=== PATIENT | female | born 1970 | race Hispanic/Latino ===

== ENCOUNTER 2018-06-15 03:31 | Emergency (ER) | payer SELFPAY ==
[2018-06-15 03:56] LABS: APPEARANCE,URINE Cloudy (CLEAR); BILIRUBIN,URINE Negative (NEGATIVE); COLOR,URINE Yellow (YELLOW); GLUCOSE, URINE (UA) Negative (NEGATIVE); KETONES,URINE Trace mg/dL (NEGATIVE); LEUKOCYTE ESTERASE ,URINE Large (NEGATIVE); NITRATE,URINE Positive (NEGATIVE); OCCULT BLOOD,URINE Moderate (NEGATIVE); PH,URINE 6.5 (5.0-8.0); PROTEIN,URINE POS 1+ (NEGATIVE)
[2018-06-15 04:00] LABS: HCG,QUAL RESULT NEGATIVE (NEGATIVE)
[2018-06-15 04:03] LABS: BACTERIA,URINE Moderate /HPF (None Seen); MUCUS,URINE Moderate LPF (None Seen); RBC,URINE 0-1 /HPF (0-1)
[2018-06-15 04:23] LABS: CREATININE 0.6 mg/dL (0.5-1.5); POTASSIUM 4.3 mmol/L (3.5-5.1)
[2018-06-15 04:27] LABS: ALBUMIN 3.4 g/dL (3.5-5.0); BILIRUBIN,TOTAL 0.2 mg/dL (0.2-1.0); TOTAL PROTEIN, SERUM 7.8 g/dL (6.0-8.3)
[2018-06-15 04:29] LABS: BASOPHILS % (AUTO) 2.1 % (0.0-5.0); EOSINOPHILS % (AUTO) 5.3 % (0.0-8.0); HEMATOCRIT 31.1 % (36-48); LYMPHOCYTES % (AUTO) 19.3 % (21.0-51.0); MEAN CORPUSCULAR HEMOGLOBIN 19.9 pg (27.0-33.0); MEAN CORPUSCULAR HGB CONC 31.1 g/dL (32.0-36.0); MEAN CORPUSCULAR VOLUME 63.9 fL (79-99); MONOCYTES % (AUTO) 5.8 % (3.0-13.0); NEUTROPHILS % (AUTO) 67.5 % (40.0-77.0); PLATELET COUNT (AUTO) 449 K/uL (130-400); RED BLOOD CELL COUNT(AUTO) 4.87 MIL/uL (4.00-5.50); RED CELL DISTRIBUTION WIDTH 20.4 % (11.0-15.5); WHITE BLOOD COUNT (AUTO) 7.7 K/uL (4.8-10.8)
[2018-06-15] MEDS ORDERED: LOPERAMIDE HCL 2 MG CAP PO ONE (04:29)
== END 2018-06-15 07:38 | disposition home or self-care (01) ==
LOC: EDH 03:31
DX: A09 Infectious gastroenteritis and colitis, unspecified (principal); N30.00 Acute cystitis without hematuria; R05 Cough; Z90.49 Acquired absence of other specified parts of digestive tract; Z88.6 Allergy status to analgesic agent
CPT/HCPCS: 36415; 71046; 80053; 81001; 81025; 83630; 83690; 85025

== ENCOUNTER 2018-08-03 15:04 | Emergency (ER) | payer OTHER ==
[2018-08-03 15:18] LABS: APPEARANCE,URINE CLOUDY (CLEAR); BILIRUBIN,URINE NEGATIVE (NEGATIVE); COLOR,URINE YELLOW (YELLOW); GLUCOSE, URINE (UA) NEGATIVE (NEGATIVE); KETONES,URINE NEGATIVE (NEGATIVE); LEUKOCYTE ESTERASE ,URINE TRACE (NEGATIVE); NITRATE,URINE NEGATIVE (NEGATIVE); OCCULT BLOOD,URINE LARGE (NEGATIVE); PH,URINE 5.5 (5.0-8.0); PROTEIN,URINE 30 (NEGATIVE); UROBILINOGEN,URINE 0.2 mg/dL (0.2-1.0)
[2018-08-03 15:29] LABS: HCG,QUAL RESULT NEGATIVE (NEGATIVE)
[2018-08-03 15:42] LABS: BASOPHILS % (AUTO) 0.7 % (0.0-5.0); EOSINOPHILS % (AUTO) 0.3 % (0.0-8.0); HEMATOCRIT 29.5 % (36-48); LYMPHOCYTES % (AUTO) 11.3 % (21.0-51.0); MEAN CORPUSCULAR HGB CONC 30.7 g/dL (32.0-36.0); MONOCYTES % (AUTO) 3.9 % (3.0-13.0); NEUTROPHILS % (AUTO) 83.8 % (40.0-77.0); PLATELET COUNT (AUTO) 476 K/uL (130-400); RED BLOOD CELL COUNT(AUTO) 4.53 MIL/uL (4.00-5.50); RED CELL DISTRIBUTION WIDTH 20.2 % (11.0-15.5); WHITE BLOOD COUNT (AUTO) 10.3 K/uL (4.8-10.8)
[2018-08-03 15:54] LABS: BACTERIA,URINE Few /HPF (None Seen); RBC,URINE 26-50 /HPF (0-1)
[2018-08-03 15:55] LABS: MUCUS,URINE Few LPF (None Seen); SQUAMOUS EPITHELIAL CELL,UR Few /HPF (0-2); YEAST,URINE BUDDING Few /HPF (None Seen)
[2018-08-03 15:58] LABS: CREATININE 0.7 mg/dL (0.5-1.5); POTASSIUM 3.9 mmol/L (3.5-5.1)
[2018-08-03 15:59] LABS: ALBUMIN 3.4 g/dL (3.5-5.0); BILIRUBIN,TOTAL 0.2 mg/dL (0.2-1.0); TOTAL PROTEIN, SERUM 7.9 g/dL (6.0-8.3)
== END 2018-08-03 16:05 | disposition home or self-care (01) ==
LOC: EDH 15:04
DX: N30.00 Acute cystitis without hematuria (principal); N92.0 Excessive and frequent menstruation with regular cycle; Z90.49 Acquired absence of other specified parts of digestive tract; Z88.5 Allergy status to narcotic agent
CPT/HCPCS: 36415; 80053; 81001; 81025; 85025; 87088

== ENCOUNTER 2018-10-30 23:07 | Emergency (ER) | payer OTHER | END 2018-10-31 01:08 | disposition home or self-care (01) | LOC: EDH 23:07 | DX: N89.8 Other specified noninflammatory disorders of vagina (principal); Z88.6 Allergy status to analgesic agent; Z90.49 Acquired absence of other specified parts of digestive tract ==

== ENCOUNTER 2021-02-22 01:32 | Emergency (ER) | payer OTHER ==
[~2021-02-22] VITALS: Ht 157.5 cm; Wt 110.2 kg
[2021-02-22 01:49] VITALS: BP 137/91
[2021-02-22 02:54] VITALS: BP_SYST 131; BP_SYST 171; BP_DIAS 88
[2021-02-22] MEDS ORDERED: ONDANSETRON 4MG INJ ONE (02:58)
[2021-02-22] MEDS ORDERED: LACTATED RINGERS 1000ML 1,000 ML IV ONE (02:58)
[2021-02-22] MEDS ORDERED: FENTANYL CITRATE PF 50 MCG/1 ML 2ML VIAL IVP ONE (03:00)
[2021-02-22] MEDS ORDERED: ONDANSETRON 4MG INJ IVP ONE (03:00)
[2021-02-22] MEDS: LACTATED RINGERS 1000ML 1,000 ML IV ONE ×2 (03:00→03:35)
[2021-02-22 03:11] LABS: APPEARANCE,URINE Clear (CLEAR); BILIRUBIN,URINE Negative (NEGATIVE); COLOR,URINE Yellow (YELLOW); GLUCOSE, URINE (UA) Negative (NEGATIVE); KETONES,URINE Negative (NEGATIVE); LEUKOCYTE ESTERASE ,URINE Trace (NEGATIVE); NITRATE,URINE Negative (NEGATIVE); OCCULT BLOOD,URINE Negative (NEGATIVE); PH,URINE 5.5 (5.0-8.0); PROTEIN,URINE Negative (NEGATIVE)
[2021-02-22 03:16] VITALS: BP 162/76
[2021-02-22 03:25] LABS: BACTERIA,URINE Few /HPF (None Seen); RBC,URINE 0-1 /HPF (0-1)
[2021-02-22 05:29] LABS: BASOPHILS % (AUTO) 0.2 % (0.0-5.0); EOSINOPHILS % (AUTO) 1.7 % (0.0-8.0); HEMATOCRIT 35.2 % (36-48); LYMPHOCYTES % (AUTO) 19.8 % (21.0-51.0); MEAN CORPUSCULAR HEMOGLOBIN 19.3 pg (27.0-33.0); MEAN CORPUSCULAR HGB CONC 27.6 g/dL (32.0-36.0); MEAN CORPUSCULAR VOLUME 70.1 fL (79-99); MONOCYTES % (AUTO) 6.8 % (3.0-13.0); PLATELET COUNT (AUTO) 433 K/uL (130-400); RED BLOOD CELL COUNT(AUTO) 5.02 MIL/uL (4.00-5.50); RED CELL DISTRIBUTION WIDTH 20.7 % (11.0-15.5); WHITE BLOOD COUNT (AUTO) 6.5 K/uL (4.8-10.8)
[2021-02-22 05:34] LABS: CREATININE 0.6 mg/dL (0.5-1.5); POTASSIUM 3.8 mmol/L (3.5-5.1)
[2021-02-22 05:39] LABS: ALBUMIN 3.3 g/dL (3.5-5.0); BILIRUBIN,TOTAL 0.3 mg/dL (0.2-1.0); TOTAL PROTEIN, SERUM 8.2 g/dL (6.0-8.3)
[2021-02-22] MEDS ORDERED: ONDA4TAB10 PO (05:48)
[2021-02-22 05:52] VITALS: BP 134/72
== END 2021-02-22 06:01 | disposition home or self-care (01) ==
LOC: EDH 01:32
DX: K52.9 Noninfective gastroenteritis and colitis, unspecified (principal); E86.0 Dehydration; R10.84 Generalized abdominal pain; Z88.5 Allergy status to narcotic agent; Z88.6 Allergy status to analgesic agent
CPT/HCPCS: 36415; 74176; 80053; 81001; 81025; 83690; 85025; 96361 ×2; 96374; 96375; 99284; J2405; J3010; J7120

== ENCOUNTER 2022-11-23 07:15 | Emergency (ER) | payer BC, OTHER ==
[~2022-11-23] VITALS: Ht 160 cm; Wt 112.5 kg
[~2022-11-23 07:15] MED LIST: BENZ-39 PO; ONDA4TAB10 PO
[2022-11-23 07:43] LABS: BASOPHILS % (AUTO) 0.7 % (0.0-5.0); EOSINOPHILS % (AUTO) 2.1 % (0.0-8.0); HEMATOCRIT 44.6 % (36-48); LYMPHOCYTES % (AUTO) 28.9 % (21.0-51.0); MEAN CORPUSCULAR HEMOGLOBIN 27.7 pg (27.0-33.0); MEAN CORPUSCULAR HGB CONC 31.8 g/dL (32.0-36.0); MEAN CORPUSCULAR VOLUME 86.9 fL (79-99); MONOCYTES % (AUTO) 6.2 % (3.0-13.0); NEUTROPHILS % (AUTO) 61.9 % (40.0-77.0); PLATELET COUNT (AUTO) 304 K/uL (130-400); RED BLOOD CELL COUNT(AUTO) 5.13 MIL/uL (4.00-5.50); RED CELL DISTRIBUTION WIDTH 13.2 % (11.0-15.5); WHITE BLOOD COUNT (AUTO) 5.8 K/uL (4.8-10.8)
[2022-11-23] MEDS ORDERED: KETOROLAC 30MG VIAL (30MG/ML) IVP ONE (08:00)
[2022-11-23] MEDS ORDERED: ONDANSETRON 4MG INJ IVP ONE (08:00)
[2022-11-23] MEDS ORDERED: 0.9%NACL 1000ML 1,000 ML IV ONE (08:00)
[2022-11-23 08:17] LABS: ALBUMIN 3.7 g/dL (3.5-5.0); CREATININE 0.8 mg/dL (0.5-1.5); POTASSIUM 3.9 mmol/L (3.5-5.1); TOTAL PROTEIN, SERUM 8.4 g/dL (6.0-8.3)
[2022-11-23 08:18] LABS: APPEARANCE,URINE CLEAR (CLEAR); BILIRUBIN,URINE NEGATIVE (NEGATIVE); COLOR,URINE LIGHT-YELLOW (YELLOW); GLUCOSE, URINE (UA) NEGATIVE (NEGATIVE); KETONES,URINE NEGATIVE (NEGATIVE); LEUKOCYTE ESTERASE ,URINE 75 Leu/uL (NEGATIVE); NITRATE,URINE NEGATIVE (NEGATIVE); OCCULT BLOOD,URINE NEGATIVE (NEGATIVE); PH,URINE 5.5 (5.0-8.0); PROTEIN,URINE NEGATIVE (NEGATIVE); UROBILINOGEN,URINE 0.2 mg/dL (0.2-1.0)
[2022-11-23 08:29] LABS: BACTERIA,URINE RARE /HPF (None Seen); MUCUS,URINE RARE LPF (None Seen); RBC,URINE 0-1 /HPF (0-1); SQUAMOUS EPITHELIAL CELL,UR FEW /HPF (0-2)
[2022-11-23] MEDS ORDERED: AMOX1TAB16 PO (08:45)
[2022-11-23] MEDS ORDERED: HYOS0.124 SL (08:45)
[2022-11-23 09:00] VITALS: BP 112/51
[2022-11-23] MEDS ORDERED: AMOX/CLAV 875/125MG TAB PO ONE (09:00)
== END 2022-11-23 09:37 | disposition home or self-care (01) ==
LOC: EDH 07:15 → MERGE 07:15 → EDH 09:37
DX: K57.32 Diverticulitis of large intestine without perforation or abscess without bleeding (principal); Z79.1 Long term (current) use of non-steroidal anti-inflammatories (NSAID)
CPT/HCPCS: 99284; 74176; 96374; 96361; 96375; 80053; 83690; 85025; 87077; 87088; 87186; 81001; 81025; 36415; J7030; J2405; J1885

== ENCOUNTER 2022-12-12 11:33 | Emergency (ER) | payer BC, OTHER ==
[~2022-12-12] VITALS: Ht 157.5 cm; Wt 112.9 kg
[~2022-12-12 11:33] MED LIST changes: +AMOX1TAB16 PO; +HYOS0.124 SL
[2022-12-12 11:39] VITALS: BP 137/89
[2022-12-12] MEDS ORDERED: KETOROLAC 15MG/ML VIAL (15MG/ML) IM ONE (12:00)
== END 2022-12-12 15:04 | disposition home or self-care (01) ==
LOC: EDH 11:33
DX: M77.31 Calcaneal spur, right foot (principal); Z90.710 Acquired absence of both cervix and uterus
CPT/HCPCS: 99284; 73610; 73630; 96372; J1885

== ENCOUNTER 2023-01-18 10:34 | Emergency (ER) | payer BC ==
[~2023-01-18] VITALS: Ht 160 cm; Wt 113.4 kg
[2023-01-18] MEDS ORDERED: BENZ200C53 PO (12:55)
[2023-01-18 15:52] VITALS: BP 138/86
== END 2023-01-18 15:58 | disposition home or self-care (01) ==
LOC: EDH 10:34
DX: B34.9 Viral infection, unspecified (principal); Z87.442 Personal history of urinary calculi; Z90.89 Acquired absence of other organs; Z90.49 Acquired absence of other specified parts of digestive tract; Z90.710 Acquired absence of both cervix and uterus; Z20.822 Contact with and (suspected) exposure to COVID-19
CPT/HCPCS: 99283; 71045; 87635; 87804 ×2; C9803

== ENCOUNTER 2024-06-18 16:40 | Emergency (ER) | payer SELFPAY ==
[~2024-06-18] VITALS: Ht 160 cm; Wt 118.4 kg
[~2024-06-18 16:40] MED LIST changes: +BENZ200C53 PO; +ONDA-243 PO; -ONDA4TAB10 PO
[2024-06-18 17:24] LABS: HEMATOCRIT 42.9 % (36-48); MEAN CORPUSCULAR HEMOGLOBIN 28.3 pg (27.0-33.0); MEAN CORPUSCULAR HGB CONC 31.5 g/dL (32.0-36.0); MEAN CORPUSCULAR VOLUME 89.9 fL (79-99); RED BLOOD CELL COUNT(AUTO) 4.77 MIL/uL (4.00-5.50); RED CELL DISTRIBUTION WIDTH 13.3 % (11.0-15.5); WHITE BLOOD COUNT (AUTO) 6.3 K/uL (4.8-10.8)
[2024-06-18 17:36] LABS: CREATININE 0.8 mg/dL (0.5-1.0); POTASSIUM 3.6 mmol/L (3.5-5.1)
--- NOTE | 2024-06-18 17:39 | EKG ---
[facility] Test Date: 2024-06-18 Test Time: 17:34:05 Pat Name: YUDI HAYWOOD Department: [facility] Room: Gender: F Cleaner And Preparer: [id number] : 1970 Requested By: LUCY KELLER Order Number: [id number] Reading MD: Marc Segura Measurements Intervals [place] Rate: 64 P: 40 HI: 170 QRS: -3 QRSD: 95 T: 35 QT: 431 QTc: 444 Interpretive Statements Sinus rhythm Low voltage, precordial leads Compared to ECG 02/22/2021 20:41:43 Low QRS voltage now present Electronically Signed On 06-21-2024 13:07:42 CYLINDER LOADER by Marc Segura Please click the below link to view image of tracing.
[2024-06-18] MEDS: ondanSETRON 4MG INJ IVP ONE (17:43)
[2024-06-18] MEDS: 0.9%NACL 1000ML 1,000 ML IV ONE (17:44)
--- NOTE | 2024-06-18 18:12 | HMCIMG ---
CT HEAD WITHOUT CONTRAST INDICATION: Syncope TECHNIQUE: Noncontrast axial helical CT images from the vertex through the skull base using 5 mm slice thickness without contrast material. CT was performed with one or more of the following dose reduction techniques: Automated exposure control, adjustment of the mA and/or kV according to patient size, or use of iterative reconstruction technique. COMPARISON: None FINDINGS: The cerebral and cerebellar hemispheres are age-appropriate in appearance. No evidence for abnormal extra-axial fluid collections or masses. The ventricles and sulci are normal in size and configuration. No evidence for intracranial parenchymal, epidural, or subdural hemorrhage, mass effect or midline shift. The cruz-white matter differentiation is well preserved. No secondary evidence to suggest acute ischemia. The brainstem and cerebellum appear normal. The visualized orbits appear unremarkable. The visible paranasal sinuses and mastoid air cells are clear. The calvarium appears normal. IMPRESSION: No acute intracranial process identified.
[2024-06-18 19:00] LABS: APPEARANCE,URINE CLEAR (CLEAR); BILIRUBIN,URINE NEGATIVE (NEGATIVE); COLOR,URINE LIGHT-YELLOW (YELLOW); GLUCOSE, URINE (UA) NEGATIVE (NEGATIVE); KETONES,URINE NEGATIVE (NEGATIVE); LEUKOCYTE ESTERASE ,URINE 25 Leu/uL (NEGATIVE); NITRATE,URINE 2+ (NEGATIVE); OCCULT BLOOD,URINE NEGATIVE (NEGATIVE); PH,URINE 5.5 (5.0-8.0); PROTEIN,URINE NEGATIVE (NEGATIVE); UROBILINOGEN,URINE 0.2 mg/dL (0.2-1.0)
[2024-06-18 19:06] LABS: ADD UA MICROSCOPIC YES
[2024-06-18 19:13] LABS: BACTERIA,URINE RARE /HPF (None Seen); MUCUS,URINE RARE LPF (None Seen); OTHER CASTS, URINE 1 /LPF (None Seen); SQUAMOUS EPITHELIAL CELL,UR RARE /HPF (0-2)
[2024-06-18 19:17] VITALS: BP 138/56; PULSE 78; RESP 18; TEMP 98.8; O2SAT 98
--- NOTE | 2024-06-18 19:43 | ERN ---
General Chief Complaint: Syncope Stated Complaint: FALL Time Seen by MD: 16:47 Time Seen by Midlevel: 16:47 Source: patient History of Present Illness Initial Comments Patient is a 53-year-old female with a past medical history of type 2 diabetes and hypertension presenting to the ER for a possible syncopal episode. The patient states she has been having diarrhea for the last couple of days and has been feeling progressively weaker. Today she reports going to the restroom and the next thing he remembers she was on the floor. It is unknown if she hit her head. On arrival she has no complaints and feels significantly improved. Allergies: Coded Allergies: morphine (Unverified Allergy, Mild, 02/22/21) SHORT OF BREATH PER PT No Allergy Information Available (Verified Allergy, Unknown, 02/22/21) acetaminophen (Unverified Allergy, Unknown, 02/22/21) codeine (Unverified Allergy, Unknown, 02/22/21) Home Meds Active Scripts Nitrofurantoin/Nitrofuran Mac (Macrobid) 100 Mg Cap, 1 CAP PO BID for 7 Days, #14 CAP 0 Refills Prov:LUCY KELLER 06/18/24 Benzonatate (Benzonatate) 200 Mg Capsule, 200 MG PO Q6H for cough for 7 Days, #28 CAP Prov:KONRAD RODRIGUEZ NP 01/18/23 Hyoscyamine Sulfate (Levsin-Sl) 0.125 Mg Tab.subl, 0.125 MG SL QIDP PRN for ABDOMINAL PAIN, #20 TAB.SL 0 Refills Prov:MAKEDA CYR MD 11/23/22 Amoxicillin/Potassium Clav (Amox Tr-K Clv 875-125 mg Tab) 1 Each Tablet, 1 EACH PO BID for 7 Days, #14 TAB 0 Refills Prov:MAKEDA CYR MD 11/23/22 Benzonatate (Tessalon Perles) 100 Mg Cap, 100 MG PO TID for 10 Days, #30 CAP 2 Refills Prov:SATINDER LAW MD 09/07/21 Ondansetron (Ondansetron Odt) 4 Mg Tab.rapdis, 4 MG PO TID PRN for NAUSEA for 3 Days, #10 TAB Prov:MEGAN BLANK MD 02/22/21 Past Medical History Past Medical History: No Pertinent History Past Surgical History: Hysterectomy, Cholecystectomy Family History Family History: Negative Social History Social History: Negative ROS Dictation CONSTITUTIONAL: Negative except for HPI HEAD/FACE: Negative except for HPI EENT: Negative except for HPI RESPIRATORY: Negative except for HPI GASTROINTESTINAL/ABDOMINAL: Negative except for HPI GENITOURINARY: Negative except for HPI MUSCULOSKELETAL: Negative except for HPI INTEGUMENTARY: Negative except for HPI NEUROLOGICAL/PSYCH: Negative except for HPI HEMATOLOGIC/LYMPHATIC: Negative except for HPI All Systems Negative, Except as noted above. 13 point review of systems assessed and all negative except for above. Physical Exam Physical Exam Dictation Vital Signs reviewed General Appearance: Alert, oriented x 3, no acute distress, well developed, nourished. Head and Face: non-traumatic. Eyes: PERRL, pink conjunctivas, eyelid no trauma, anterior chamber with arcus senilis. Ears: Pinnas intact and no signs of trauma or erythema ear canals clear and no discharge TM no erythema Nose: No discharge, no bleeding. Oropharynx: Mouth normal, tongue pink, pharynx clear,no erythema, tonsils no exudates, no abscesses noted, mucous membrane moist Neck: Supple, non-tender, no thyromegaly, no masses, no JVD, no bruits Breast:Deferred Chest:No tenderness, no crepitus, no paradoxical movement, no retractions Lungs:Clear, well-ventilated, symmetric, no rales, no wheezing, no rhonchi, no stridor, good breath sounds bilaterally Heart: Regular rate, regular rhythm, no murmur, no gallops Vascular: no peripheral edema, Abdomen: Soft, positive bowel sounds, nondistended, no guarding, nontender, no rebound, no masses no hepatomegaly, no splenomegaly, no Hunt's sign, no hernias. Rectal: Deferred Genital: Deferred Neurological: Normal speech, motor function intact, sensory function intact Musculoskeletal: Neck nontender, full range of motion, back nontender, full range of motion, Extremities: nontender, full range of motion Skin: Color pink, dry, no turgor, no rash, no lacerations, no abrasions, no contusions. Lymphatic: Deferred Results Laboratory and Microbiology Lab and Micro Result Laboratory Tests Test 06/18/24 17:14 White Blood Count 6.3 K/uL (4.8-10.8) Red Blood Count 4.77 MIL/uL (4.00-5.50) Hemoglobin 13.5 g/dL (12.0-16.0) Hematocrit 42.9 % (36-48) Mean Corpuscular Volume 89.9 fL (79-99) Mean Corpuscular Hemoglobin 28.3 pg (27.0-33.0) Mean Corpuscular Hemoglobin Concent 31.5 g/dL (32.0-36.0) L Red Cell Distribution Width 13.3 % (11.0-15.5) Platelet Count 280 K/uL (130-400) Mean Platelet Volume 11.5 fL (7.5-10.5) H Nucleated Red Blood Cells 0.0 % (0.0-0.19) Urine Color LIGHT-YELLOW (YELLOW) Urine Appearance CLEAR (CLEAR) Urine pH 5.5 (5.0-8.0) Urine Specific [place] 1.027 (1.001-1.031) Urine Protein NEGATIVE mg/dL (NEGATIVE) Urine Glucose (UA) NEGATIVE mg/dL (NEGATIVE) Urine Ketones NEGATIVE mg/dL (NEGATIVE) Urine Occult Blood NEGATIVE (NEGATIVE) Urine Nitrate 2+ (NEGATIVE) H Urine Bilirubin NEGATIVE mg/dL (NEGATIVE) Urine Urobilinogen 0.2 mg/dL (0.2-1.0) Urine Leukocyte Esterase 25 Gwendolyn/uL (NEGATIVE) H Urine RBC 2-5 /HPF (0-1) H Urine WBC 2-5 /HPF (0-1) H Urine Squamous Epithelial Cells RARE /HPF (0-2) Urine Bacteria RARE /HPF (None Seen) Urine Other Casts 1 /LPF (None Seen) Sodium Level 141 mmol/L (136-145) Potassium Level 3.6 mmol/L (3.5-5.1) Chloride Level 104 mmol/L (101-111) Carbon Dioxide Level 31 mmol/L (21-32) Blood Urea Nitrogen 15 mg/dL (7-18) Creatinine 0.8 mg/dL (0.5-1.0) Glomerular Filtration Rate Calc 89 mL/min (>90) Random Glucose 89 mg/dL (70-105) Total Calcium 9.1 mg/dL (8.5-10.1) Total Creatine Kinase 56 U/L (21-232) # Troponin I High Sensitivity 6 ng/L (4-50) B-Type Natriuretic Peptide 49 pg/mL (0-100) Lipase 41 U/L (16-77) Labs Reviewed?: Yes MDM MDM: Patient is a 53-year-old female with a past medical history of type 2 diabetes and hypertension presenting to the ER for a possible syncopal episode. The patient states she has been having diarrhea for the last couple of days and has been feeling progressively weaker. Today she reports going to the restroom and the next thing he remembers she was on the floor. It is unknown if she hit her head. On arrival she has no complaints and feels significantly improved. On physical examination patient is in no acute distress. Her GCS of 15. Her vital signs are stable. Patient is afebrile. The initial concern was a syncope versus dehydration versus head injury. A CT scan of the head was ordered to rule out any intracranial process however CT scan of the head is negative for any acute injury. She was started on 1 L of IV fluids given her recent episodes of diarrhea. Her CBC shows no leukocytosis. Her hemoglobin is stable. She is not anemic. Her chemistries are unremarkable. Her cardiac enzymes are negative. Her EKG does not show any ST elevations or bundle branch blocks. Her urine is consistent with a infection with positive nitrates. Patient was given 1 g of Rocephin IV and will be discharged home with supportive management. On repeat evaluation she does report feeling significantly improved. She has no complaints. Given that her blood work is unremarkable she has an upcoming appointment with her primary care doctor patient will be discharged home. Differential diagnosis: Dehydration, anemia, syncope, intracranial bleed There are no social concerns with this patient. Prescription drug management Prescriptions will include: Macrobid Medical management and examination interpretation discussions were had by me with other qualified healthcare professionals as indicated for the patient's care. ED Course Orders Procedure Category Date Status Time Cbc Without LAB 06/18/24 Complete Differential 17:04 Basic Metabolic Panel LAB 06/18/24 Complete 17:04 Lipase LAB 06/18/24 Complete 17:04 Urinalysis Profile LAB 06/18/24 Complete 17:04 12 Lead Ekg Tracing- EKG 06/18/24 Complete Technical 17:14 Troponin I High LAB 06/18/24 Complete Sensitivity 17:14 B-Type Natriuretic LAB 06/18/24 Complete Peptide 17:14 Creatine Kinase, Total LAB 06/18/24 Complete 17:14 Ct Head/Brain W/O CT 06/18/24 Resulted Contrast 17:41 0.9%Nacl 1000ml (Ns PHA 06/18/24 Complete 1000ml) 18:00 Ondansetron 4mg Inj PHA 06/18/24 Complete (Zofran 4mg Inj) 18:00 Culture Urine ALBARO 06/18/24 In Process 19:06 Ceftriaxone 1g Vial PHA 06/18/24 Complete (Rocephine 1g Inj) 19:30 Current Medications Medications (Trade) Dose Ordered Sig/Tone Route PRN Reason Start Time Stop Time Status Last Admin Dose Admin Ceftriaxone Sodium (ROCEphine 1G INJ) 1 gm ONCE IVPB 06/18/24 19:30 06/18/24 20:03 DC 06/18/24 19:54 Ondansetron HCl (zoFRAN 4MG INJ) 4 mg ONCE ONCE IVP 06/18/24 18:00 06/18/24 18:01 DC 06/18/24 17:43 Sodium Chloride 1,000 ml @ 0 mls/hr ONCE ONCE IV 06/18/24 18:00 06/18/24 18:01 DC 06/18/24 17:44 Vital Signs Date Time Temp Pulse Resp B/P (MAP) Pulse Ox O2 Delivery O2 Flow Rate FiO2 06/18/24 19:17 98.8 78 18 138/56 98 Room Air* 0 06/18/24 18:46 98.6 76 20 138/68 99 Room Air* 0 06/18/24 17:30 98.6 76 20 129/90 95 Room Air* 0 21 06/18/24 16:44 98.1 78 18 120/80 99 Room Air 0 DX & DISP Disposition: Discharge Departure Impression: Primary Impression: Urinary tract infection Additional Impression: Syncope Condition: Stable Scripts Nitrofurantoin/Nitrofuran Mac (Macrobid) 100 Mg Cap 1 CAP PO BID for 7 Days, #14 CAP 0 Refills Prov: LUCY KELLER 06/18/24 Additional Instructions: New or worsening symptoms. Your cardiac enzymes are negative. Your CT scan of the head is negative for any acute injury. Your urine is consistent with infection. You were given 1 g of ceftriaxone in the emergency department and will be discharged home with a prescription for Macrobid. Please follow up with your primary care provider as scheduled. Return to the ER for any new or worsening symptoms. Referrals: DENIS,MAHSA AIR TRAFFIC CONTROL OPERATOR (PCP) Time of Disposition: 19:54 I have reviewed the case, and I agree with, Diagnosis and Plan I performed the substantive portion of the visit. I have reviewed and personally made and approve the management plan that is documented in the note by myself or the PRADIP. I acknowledge for responsibility for the patient's management plan. LUCY KELLER Jun 18, 2024 19:43 ROOSEVELT SUN DO Jun 18, 2024 22:36
[2024-06-18] MEDS ORDERED: MACR100 PO (19:54)
[2024-06-18] MEDS: cefTRIAXone 1G VIAL IVPB SCH (19:54)
== END 2024-06-18 20:03 | disposition home or self-care (01) ==
LOC: EDH 16:40
DX: R55 Syncope and collapse (principal); N39.0 Urinary tract infection, site not specified; E11.9 Type 2 diabetes mellitus without complications; I10 Essential (primary) hypertension; Z79.899 Other long term (current) drug therapy; Z88.5 Allergy status to narcotic agent; Z90.49 Acquired absence of other specified parts of digestive tract; Z90.710 Acquired absence of both cervix and uterus
CPT/HCPCS: 99285; 96374; 70450; 96361; 96375; 82550; 84484; 80048; 83880; 83690; 85027; 87086 ×2; 87186; 81001; 36415; 93005; J0696; J2405

== ENCOUNTER 2025-04-19 11:15 | Emergency (ER) | payer BC ==
[~2025-04-19] VITALS: Ht 160 cm; Wt 128.8 kg
[~2025-04-19 11:15] MED LIST changes: +MACR100 PO
--- NOTE | 2025-04-19 14:02 | HMCIMG ---
EXAM: CR right Knee, 3 View. CLINICAL HISTORY: r/o fx COMPARISON: None provided. FINDINGS: There is medial compartment predominant moderate to severe tricompartmental right knee joint osteoarthritis. There is a small to moderate suprapatellar knee joint effusion that may reflect internal derangement. There is mild prepatellar/infrapatellar bursitis. IMPRESSION: 1. Moderate to severe tricompartmental right knee osteoarthritis, predominantly in the medial compartment. 2. Small to moderate suprapatellar knee joint effusion, possibly reflecting internal derangement. /[place]
--- NOTE | 2025-04-19 14:03 | HMCIMG ---
EXAM: US for Deep Venous Thrombosis, right Lower Extremity. CLINICAL HISTORY: Leg Pain and Swelling TECHNIQUE: Real-time ultrasound scan of the veins of the right lower extremity with color Doppler flow, spectral waveform analysis, and compression. COMPARISON: None provided. FINDINGS: DEEP VEINS: The common femoral, superficial femoral, and popliteal veins are echolucent and compressible. There is normal color Doppler flow throughout. The visualized calf veins appear patent. SOFT TISSUES: No popliteal fossa cyst or other abnormalities. IMPRESSION: 1. No evidence of deep venous thrombosis in the right lower extremity. /[place]
[2025-04-19] MEDS ORDERED: KETO10TA2 PO (14:11)
--- NOTE | 2025-04-19 14:12 | ERN ---
General Chief Complaint: Lower Extremity Pain/Injury Stated Complaint: LOWER EXTREMITY PAIN Time Seen by MD: 11:25 Time Seen by Midlevel: 11:25 Source: patient History of Present Illness Initial Comments Patient is a morbidly obese 54-year-old female presenting to the emergency department for evaluation of worsening right knee pain and ankle swelling that has been ongoing for the past six months. Denies any direct injury or trauma to the area Allergies: Coded Allergies: morphine (Unverified Allergy, Mild, 02/22/21) SHORT OF BREATH PER PT No Allergy Information Available (Verified Allergy, Unknown, 02/22/21) acetaminophen (Unverified Allergy, Unknown, 02/22/21) codeine (Unverified Allergy, Unknown, 02/22/21) Home Meds Active Scripts Nitrofurantoin/Nitrofuran Mac (Macrobid) 100 Mg Cap, 1 CAP PO BID for 7 Days, #14 CAP 0 Refills Prov:LUCY KELLER PA 06/18/24 Benzonatate (Benzonatate) 200 Mg Capsule, 200 MG PO Q6H for cough for 7 Days, #28 CAP Prov:KONRAD RODRIGUEZ SEAFOOD MANAGER 01/18/23 Hyoscyamine Sulfate (Levsin-Sl) 0.125 Mg Tab.subl, 0.125 MG SL QIDP PRN for ABDOMINAL PAIN, #20 TAB.SL 0 Refills Prov:MAKEDA CYR MD 11/23/22 Amoxicillin/Potassium Clav (Amox Tr-K Clv 875-125 mg Tab) 1 Each Tablet, 1 EACH PO BID for 7 Days, #14 TAB 0 Refills Prov:MAKEDA CYR MD 11/23/22 Benzonatate (Tessalon Perles) 100 Mg Cap, 100 MG PO TID for 10 Days, #30 CAP 2 Refills Prov:SATINDER LAW MD 09/07/21 Ondansetron (Ondansetron Odt) 4 Mg Tab.rapdis, 4 MG PO TID PRN for NAUSEA for 3 Days, #10 TAB Prov:MEGAN BLANK MD 02/22/21 Past Medical History Past Medical History: No Pertinent History Past Surgical History: Hysterectomy, Cholecystectomy Family History Family History: Negative Social History Social History: Negative ROS Dictation CONSTITUTIONAL: Negative except for HPI HEAD/FACE: Negative except for HPI EENT: Negative except for HPI RESPIRATORY: Negative except for HPI GASTROINTESTINAL/ABDOMINAL: Negative except for HPI GENITOURINARY: Negative except for HPI MUSCULOSKELETAL: Negative except for HPI INTEGUMENTARY: Negative except for HPI NEUROLOGICAL/PSYCH: Negative except for HPI HEMATOLOGIC/LYMPHATIC: Negative except for HPI All Systems Negative, Except as noted above. 13 point review of systems assessed and all negative except for above. Physical Exam Physical Exam Dictation Vital Signs reviewed General Appearance: Alert, oriented x 3, no acute distress, well developed, nourished. Head and Face: non-traumatic. Eyes: PERRL, pink conjunctivas, eyelid no trauma, anterior chamber with arcus senilis. Ears: Pinnas intact and no signs of trauma or erythema ear canals clear and no discharge TM no erythema Nose: No discharge, no bleeding. Oropharynx: Mouth normal, tongue pink, pharynx clear,no erythema, tonsils no exudates, no abscesses noted, mucous membrane moist Neck: Supple, non-tender, no thyromegaly, no masses, no JVD, no bruits Breast:Deferred Chest:No tenderness, no crepitus, no paradoxical movement, no retractions Lungs:Clear, well-ventilated, symmetric, no rales, no wheezing, no rhonchi, no stridor, good breath sounds bilaterally Heart: Regular rate, regular rhythm, no murmur, no gallops Vascular: no peripheral edema, Abdomen: Soft, positive bowel sounds, nondistended, no guarding, nontender, no rebound, no masses no hepatomegaly, no splenomegaly, no Hunt's sign, no hernias. Rectal: Deferred Genital: Deferred Neurological: Normal speech, motor function intact, sensory function intact Musculoskeletal: Neck nontender, full range of motion, back nontender, full range of motion, Extremities: nontender, full range of motion Skin: Color pink, dry, no turgor, no rash, no lacerations, no abrasions, no contusions. Lymphatic: Deferred MDM MDM: 54-year-old morbidly obese female presents with a right knee pain. Radiographs demonstrate moderate to severe tricompartmental osteoarthritis, most pronounced in the medial compartment with a small to moderate suprapatellar ef fusion suggesting degenerative changes for possible internal knee derangement. Given the presence of swelling and risk factors venous ultrasound was performed to rule out DVT and was negative. Cardiac or systemic causes not suspected. No signs of septic arthritis such as fever, chills, erythema, or inability to bear weight. No acute trauma to suggest fracture. Pain most consistent with osteoarthritis flare with joint effusion. Patient remained stable throughout ED stay. Risk stratification low suspicion for septic joint, fracture or thromboembolic disease. Discharged home with supportive care analgesia, activity modification and follow up with PCP or orthopedics. Return precautions discussed. Differential diagnosis: DVT, arthritis, fracture There are no social concerns with this patient. Prescription drug management Prescriptions will include: Medical management and examination interpretation discussions were had by me with other qualified healthcare professionals as indicated for the patient's care. ED Course Orders Procedure Category Date Status Time Knee 3vws Rt RAD 04/19/25 Taken 12:31 Ketorolac PHA 04/19/25 Complete Tromethamine 30mg/Ml 13:00 Us Venous Doppler US 04/19/25 Taken Unilateral 12:31 Current Medications Medications (Trade) Dose Ordered Sig/Tone Route PRN Reason Start Time Stop Time Status Last Admin Dose Admin Ketorolac Tromethamine (toRADol) 30 mg ONCE ONCE IM 04/19/25 13:00 04/19/25 13:01 DC 04/19/25 12:55 Vital Signs Date Time Temp Pulse Resp B/P (MAP) Pulse Ox O2 Delivery O2 Flow Rate FiO2 04/19/25 11:39 88 20 133/91 97 Room Air* 0 21 04/19/25 11:15 98.1 87 19 134/87 97 Room Air 0 [place] [id number] [id number] IMAGING REPORT Signed PATIENT: YUDI HAYWOOD MR#: [id number] : 1970 SEX: F AGE: 54 LOCATION: [facility] ORDER 1233 STATUS: REG ER REPORT#: [id number] SERVICE 1231 REASON: r/o fx ORDERING PHYSICIAN: LUCY KELLER PROCEDURE: KNEE 3V RT - KNEE 3VWS RT EXAM: CR right Knee, 3 View. CLINICAL HISTORY: r/o fx COMPARISON: None provided. FINDINGS: There is medial compartment predominant moderate to severe tricompartmental right knee joint osteoarthritis. There is a small to moderate suprapatellar knee joint effusion that may reflect internal derangement. There is mild prepatellar/infrapatellar bursitis. IMPRESSION: 1. Moderate to severe tricompartmental right knee osteoarthritis, predominantly in the medial compartment. 2. Small to moderate suprapatellar knee joint effusion, possibly reflecting internal derangement. /[place] DICTATED BY: CAROLE FLYNN Jr., MD DATE: 04/19/25 1501 ELECTRONICALLY SIGNED BY: CAROLE FLYNN Jr., MD DATE: 04/19/25 1501 DX & DISP Disposition: Discharge Departure Impression: Primary Impression: Arthritis of knee, right Condition: Stable Scripts Ketorolac Tromethamine (Ketorolac Tromethamine) 10 Mg Tablet 1 TAB PO BID for pain for 5 Days, #10 TAB 0 Refills Prov: LUCY KELLER 04/19/25 Additional Instructions: You were seen today for right knee pain. Imaging showed moderate to severe arthritis in all three compartments of your knee especially in the inner side where your pain is originating from. There was also some fluid in the knee joint which may be related to irritation or internal changes from arthritis. Rest the knee and avoid activities that make the pain worse such as prolonged standing, squatting or heavy lifting. Apply ice or a cold pack to the knee for 15 20 minutes at a time, several times a day, especially of the knees swollen or painful. Elevate your leg on possible to reduce swelling. You may use sygh-lyd-eygapsn pain medications such as Tylenol or Motrin. You need to follow up with your primary care provider or an career specialist to discuss long-term management options. These may include physical therapy, joint injections or other treatments. Return to the ER if you develop sudden severe knee pain, the knee becomes red hot and/or very swollen. Referrals: MAHSA BARRIOS (PCP) Time of Disposition: 14:08 I have reviewed the case, and I agree with, Diagnosis and Plan I performed the substantive portion of the visit. I have reviewed and personally made and approve the management plan that is documented in the note by myself or the PRADIP. I acknowledge for responsibility for the patient's management plan. LUCY KELLER Apr 19, 2025 14:11
[2025-04-19 14:13] VITALS: BP 130/87; PULSE 74; RESP 20; TEMP 98; O2SAT 98
--- NOTE | 2025-04-19 14:22 | NUR ---
APPLIED 20" 3-PANEL KNEE IMMOBILIZER, PT TOLERATED WELL.
== END 2025-04-19 14:28 | disposition home or self-care (01) ==
LOC: EDH 11:15
DX: M17.11 Unilateral primary osteoarthritis, right knee (principal); E66.01 Morbid (severe) obesity due to excess calories; M79.661 Pain in right lower leg; Z88.5 Allergy status to narcotic agent; Z90.49 Acquired absence of other specified parts of digestive tract; Z90.710 Acquired absence of both cervix and uterus; Z68.43 Body mass index [BMI] 50.0-59.9, adult
CPT/HCPCS: 99284; 93971; 73562; 96372; J1885

== ENCOUNTER 2025-04-26 14:27 | Emergency (ER) | payer BC ==
[~2025-04-26] VITALS: Ht 160 cm; Wt 128.8 kg
[~2025-04-26 14:27] MED LIST changes: +KETO10TA2 PO
--- NOTE | 2025-04-26 15:05 | ERN ---
General Chief Complaint: Mechanical Fall Stated Complaint: FALL Time Seen by MD: 14:28 Source: patient History of Present Illness Initial Comments IN HIS IS A 54-YEAR-OLD FEMALE COMING IN AFTER SHE HAD A TRIP AND A FALL. PER PATIENT SHE FELL DOWN LANDING ON HER RIGHT KNEE. SHE STATES THAT THE PAIN IS LOCALIZED TO THE RIGHT KNEE AND RIGHT ANKLE. NO DEFORMITY NOTED. PATIENT S TATES THAT THE PAIN IS EXACERBATED WITH MOVEMENT. Allergies: Coded Allergies: morphine (Unverified Allergy, Mild, 02/22/21) SHORT OF BREATH PER PT No Allergy Information Available (Verified Allergy, Unknown, 02/22/21) acetaminophen (Unverified Allergy, Unknown, 02/22/21) codeine (Unverified Allergy, Unknown, 02/22/21) Home Meds Active Scripts Ketorolac Tromethamine (Ketorolac Tromethamine) 10 Mg Tablet, 1 TAB PO BID for pain for 5 Days, #10 TAB 0 Refills Prov:LUCY KELLER 04/19/25 Nitrofurantoin/Nitrofuran Mac (Macrobid) 100 Mg Cap, 1 CAP PO BID for 7 Days, #14 CAP 0 Refills Prov:LUCY KELLER 06/18/24 Benzonatate (Benzonatate) 200 Mg Capsule, 200 MG PO Q6H for cough for 7 Days, #28 CAP Prov:KONRAD RODRIGUEZ NP 01/18/23 Hyoscyamine Sulfate (Levsin-Sl) 0.125 Mg Tab.subl, 0.125 MG SL QIDP PRN for ABDOMINAL PAIN, #20 TAB.SL 0 Refills Prov:MAKEDA YCR MD 11/23/22 Amoxicillin/Potassium Clav (Amox Tr-K Clv 875-125 mg Tab) 1 Each Tablet, 1 EACH PO BID for 7 Days, #14 TAB 0 Refills Prov:MAKEDA CYR MD 11/23/22 Benzonatate (Tessalon Perles) 100 Mg Cap, 100 MG PO TID for 10 Days, #30 CAP 2 Refills Prov:SATINDER LAW MD 09/07/21 Ondansetron (Ondansetron Odt) 4 Mg Tab.rapdis, 4 MG PO TID PRN for NAUSEA for 3 Days, #10 TAB Prov:MEGAN BLANK MD 02/22/21 Past Medical History Past Medical History: No Pertinent History Past Surgical History: Hysterectomy, Cholecystectomy Family History Family History: Negative Social History Social History: Negative ROS Dictation CONSTITUTIONAL: NO CHILLS, NO FEVER, NO WEAKNESS, NO DIAPHORESIS, NO MALAISE. HEAD/FACE: NO SIGNS OF TRAUMA. EENT: NO EYE PAIN, NO BLURRED VISION, NO TEARING, NO DOUBLE VISION, NO EAR PAIN, NO EAR DISCHARGE, NO NOSE PAIN, NO NASAL CONGESTION, NO THROAT PAIN, NO THROAT SWELLING, NO MOUTH PAIN. RESPIRATORY: NO COUGH, NO ORTHOPNEA, NO SOB, NO STRIDOR, NO WHEEZING. CARDIOVASCULAR: NO CHEST PAIN, NO EDEMA, NO PALPITATIONS, NO SYNCOPE. GASTROINTESTINAL/ABDOMINAL: NO ABDOMINAL PAIN, NO CONSTIPATION, NO DIARRHEA, NO NAUSEA, NO VOMITING. GENITOURINARY: NO ABNORMAL DISCHARGE, NO DYSURIA, NO FREQUENT URINATION, NO HEMATURIA. NO COMPLAINTS OF PAIN IN THE GENITALS. MUSCULOSKELETAL: NO BACK PAIN, NO GOUT, JOINT PAIN, NO JOINT SWELLING, MUSCLE PAIN, NO MUSCLE STIFFNESS, NO NECK PAIN. INTEGUMENTARY: NO CHANGE IN COLOR, NO CHANGE IN HAIR/NAILS, NO DRYNESS, NO LESION, NO LUMPS, NO RASH. NEUROLOGICAL/PSYCH: NO ANXIETY, NOT DEPRESSED, NO EMOTIONAL PROBLEM, NO HEADA CHUN, NO NUMBNESS, NO PRE-EXISTING DEFICIT, NO HISTORY OF SEIZURES, NO TREMORS, NO WEAKNESS. HEMATOLOGIC/LYMPHATIC: NOT ANEMIC, NO HISTORY OF BLOOD CLOTS, NO APPARENT BLEEDING, NO BRUISING, GLANDS NOT SWOLLEN. ALL SYSTEMS NEGATIVE, EXCEPT NOTED. Physical Exam Physical Exam Dictation VITAL SIGNS: REVIEWED. GENERAL APPEARANCE: ALERT, ORIENTED X3, NO ACUTE DISTRESS, OBESE. HEAD AND FACE: NON-TRAUMATIC. EYES: PERRL, PINK CONJUNCTIVAS, EYELID NO TRAUMA, ANTERIOR CHAMBER CLEAR. EARS: PINNAS INTACT AND NO SIGNS OF TRAUMA OR ERYTHEMA. EAR CANALS CLEAR AND NO DISCHARGE. TMS NO ERYTHEMA. NOSE: NO DISCHARGE, NO BLEEDING. OROPHARYNX: MOUTH NORMAL, TEETH NO CARIES, TONGUE PINK. PHARYNX CLEAR, NO ERYTHEMA. TONSILS NO EXUDATES, NO ABSCESSES NOTED. MUCOUS MEMBRANE MOIST. NECK: SUPPLE, NON-TENDER, NO THYROMEGALY, NO MASSES, NO JVD, NO BRUITS. BREAST: DEFERRED. CHEST: NO TENDERNESS, NO CREPITUS, NO PARADOXICAL MOVEMENT, NO RETRACTIONS. LUNGS: CLEAR, WELL-VENTILATED, SYMMETRIC, NO RALES, NO WHEEZING, NO RHONCHI, NO STRIDOR, GOOD BREATH SOUNDS BILATERALLY. HEART: REGULAR RATE, REGULAR RHYTHM, NO MURMUR, NO GALLOPS. VASCULAR: NO PERIPHERAL EDEMA. ABDOMEN: SOFT, POSITIVE BOWEL SOUNDS, NONDISTENDED, NO GUARDING, NONTENDER, NO REBOUND, NO MASSES NO HEPATOMEGALY, NO SPLENOMEGALY, NO SONI'S SIGN, NO HERNIAS. RECTAL: DEFERRED. GENITAL: DEFERRED. NEUROLOGICAL: NORMAL SPEECH, GROSS MOTOR FUNCTION INTACT, GROSS SENSORY FUNCTION INTACT. MUSCULOSKELETAL: NECK NONTENDER, FULL RANGE OF MOTION, BACK NONTENDER, FULL RANGE OF MOTION. EXTREMITIES: NONTENDER, FULL RANGE OF MOTION. RIGHT LOWER EXTREMITY TENDERNESS TO PALPATION, SPECIFICALLY THE RIGHT KNEE AND RIGHT ANKLE. SKIN: COLOR PINK, DRY, NO TURGOR, NO RASH, NO LACERATIONS, NO ABRASIONS, NO CONTUSIONS. LYMPHATICS: DEFERRED. Results Laboratory and Microbiology Labs Reviewed?: Yes MDM MDM: DIFFERENTIAL DIAGNOSIS: KNEE CONTUSION, KNEE STRAIN, FRACTURED PATELLA, RATIONALE: TESTS CONSIDERED AND ORDERED SECONDARY TO SHARED DECISION MAKING INCLUDE: PREVIOUS OUTSIDE RECORDS REVIEWED: OLD ER VISITS. RISK OF COMPLICATION AND/OR MORBIDITY OR MORTALITY OF PATIENT MANAGEMENT: NONE MEDICATIONS-PER MEDICATION RECONCILIATION NEED FOR HOSPITALIZATION: PATIENT DOES NOT MEET CRITERIA FOR HOSPITALIZATION. NEED FOR EMERGENCY MAJOR/MINOR SURGERY: NO PATIENT IS A 54-YEAR-OLD FEMALE COMING IN COMPLAINING OF RIGHT KNEE PAIN. X-RAY DID NOT DISCLOSE ACUTE FINDINGS. KNEE IMMOBILIZER WAS APPLIED SECONDARY TO THE DISCOMFORT SHE WAS PRESENTING WITH A. SHE STATES THAT THE PAIN HAS IMPROVED PATIENT WILL BE DISCHARGED IN STABLE CONDITION. ED Course Orders Procedure Category Date Status Time Knee 3vws Rt RAD 04/26/25 Taken 14:28 Ankle Comp 3vws Rt RAD 04/26/25 Taken 14:28 Knee Immobilizer LUCIA 04/26/25 Verified 15:49 Vital Signs Date Time Temp Pulse Resp B/P (MAP) Pulse Ox O2 Delivery O2 Flow Rate FiO2 04/26/25 14:28 98.2 88 16 106/74 96 Room Air 0 04/26/25 14:28 98.2 88 16 106/74 96 Room Air* 0 21 DX & DISP Disposition: Discharge Departure Impression: Primary Impression: Knee strain Additional Impression: Knee contusion Condition: Stable Scripts Diclofenac Sodium (Voltaren Arthritis Pain) 1 % Gel..gram. 5 GM TP BID for 7 Days, #1 TUBE Prov: JOSE,LILO MD 04/26/25 Additional Instructions: FOLLOW-UP WITH PRIMARY CARE PROVIDER IN 1 TO 2 DAYS. TAKE MEDICATIONS DIRECTED HERE IN THE EMERGENCY ROOM. OKAY TO CONTINUE HOME MEDICATIONS UNLESS OTHERWISE DISCUSSED DURING YOUR VISIT IN THE EMERGENCY ROOM TODAY. RETURN TO YOUR NEAREST EMERGENCY ROOM IF SYMPTOMS WORSEN OR IF THERE IS NO IMPROVEMENT. CALL 911 IF YOU NEED IMMEDIATE ASSISTANCE. TAKE TYLENOL [id number] NEEDED AND IF NO CONTRAINDICATIONS ARE PRESENT. INCREASE ORAL HYDRATION. A WOUND CULTURE OR URINE CULTURE WAS ORDERED HERE IN THE EMERGENCY ROOM DEPARTMENT PLEASE FOLLOW-UP WITH PRIMARY CARE PROVIDER AND ADVISE THEM TO GET REPORTS FROM OUR FACILITY. IF YOU HAD ANY LEONARDO WRAP/SPLINTS THAT WERE APPLIED HERE, PLEASE DO NOT REMOVE THEM UNTIL YOU SEE YOUR PRIMARY CARE OR SPECIALTY. REFERRALS: Referrals: SELF,REFERRAL (PCP) LUCY REINOSO MD Time of Disposition: 15:51 LILO GARCIA MD Apr 26, 2025 15:05
[2025-04-26] MEDS ORDERED: DICL20GE TP (15:51)
--- NOTE | 2025-04-26 16:16 | HMCIMG ---
EXAM: CR right ankle, 3 View. CLINICAL HISTORY: FALL COMPARISON: None provided. FINDINGS: BONES: No acute fracture or aggressive appearing osseous lesion. JOINTS: The joint spaces appear within normal limits. No dislocation. No radiographic evidence of a joint effusion. SOFT TISSUES: Soft tissue edema surrounding the right ankle. IMPRESSION: 1. No acute osseous injury. 2. Soft tissue edema surrounding the right ankle. /[place]
[2025-04-26 16:17] VITALS: BP 146/87; PULSE 85; RESP 16; TEMP 97.4; O2SAT 97
--- NOTE | 2025-04-26 16:21 | HMCIMG ---
EXAM: CR right Knee, 3 View. CLINICAL HISTORY: FALL COMPARISON: None provided. FINDINGS: BONES: No acute fracture or aggressive appearing osseous lesion. JOINTS: There is medial compartment predominant moderate to severe tricompartmental right knee joint osteoarthritis. There is a small knee joint effusion. SOFT TISSUES: There is mild infrapatellar bursitis. IMPRESSION: 1. No acute osseous injury. 2. Moderate to severe tricompartmental right knee osteoarthritis, predominantly in the medial compartment, with small joint effusion. /[place]
--- NOTE | 2025-04-26 16:35 | NUR ---
PLACED RIGHT KNEE IMMOBILIZER AND PROVIDED CRUTCHES PER MD VERBAL ORDER. PT TAUGHT BACK ON CRUTCH TRAINING.
== END 2025-04-26 16:42 | disposition home or self-care (01) ==
LOC: EDH 14:27
DX: S86.911A Strain of unspecified muscle(s) and tendon(s) at lower leg level, right leg, initial encounter (principal); S80.01XA Contusion of right knee, initial encounter; Z88.5 Allergy status to narcotic agent; Z90.49 Acquired absence of other specified parts of digestive tract; Z79.899 Other long term (current) drug therapy; Z90.710 Acquired absence of both cervix and uterus; W01.0XXA Fall on same level from slipping, tripping and stumbling without subsequent striking against object, initial encounter; Y93.89 Activity, other specified; Y92.89 Other specified places as the place of occurrence of the external cause; Y99.8 Other external cause status
CPT/HCPCS: 29505; 73562; 73610; 99283